=== PATIENT | female | born 1960 | race Caucasian/White ===

== ENCOUNTER 2017-07-02 12:19 | Emergency (ER) | payer OTHER ==
[~2017-07-02] VITALS: Ht 165.1 cm; Wt 59.0 kg
[~2017-07-02 12:19] MED LIST: AMOX500 PO; CONEST1.25 PO; CYCL10 PO; Cyclobenzaprine5 MG PO; HYDACE7.5 PO; IBUP600 PO; IBUP800; NAPR500 PO; Naprosyn500 MG PO; Norco 5-325 Ta1 EACH PO; PENVK500 PO; Percocet 5-3251 EACH PO; Ultram50 MG PO
[2017-07-02] MEDS ORDERED: Robaxin-750750 MG PO (12:58)
[2017-07-02] MEDS ORDERED: Voltaren100 GM TOP (12:58)
[2017-07-02] MEDS ORDERED: Prednisone20 MG PO (12:59)
[2017-07-02] MEDS ORDERED: Klonopin1 MG PO (13:09)
== END 2017-07-02 13:12 | disposition home or self-care (01) ==
LOC: ER 12:19
DX: M54.41 Lumbago with sciatica, right side (principal); F41.9 Anxiety disorder, unspecified; Z88.1 Allergy status to other antibiotic agents; Z88.5 Allergy status to narcotic agent; Z79.899 Other long term (current) drug therapy
CPT/HCPCS: 96372; 99283; J1885